=== PATIENT | female | born 1955 | race Caucasian/White ===

== ENCOUNTER → 2016-11-14 | Outpatient (CLI) | payer BC, OTHER ==
--- NOTE | 2016-11-15 18:22 | WOMENS IMAGING REPORT ---
EXAM DESCRIPTION: BILAT SCREENING MAMMO W/CAD COMPLETED DATE/TIME: 11/14/2016 9:36 am REASON FOR STUDY: BILAT SCREENING MAMMO (Z12.31) Z12.31 ENCNTR SCREEN MAMMOGRAM FOR MALIGNANT NEOPL ASM OF CURTIS COMPARISON: Multiple since 2008 TECHNIQUE: Standard craniocaudal and mediolateral oblique views of each breast recorded using digita l acquisition. LIMITATIONS: None. FINDINGS: No masses, calcifications or architectural distortion. No areas of suspicion. Read with the assistance of CAD. .[facility] - R2 Cenova Version 1.3 .[facility] - R2 Cenova Version 1.3 .[facility] - R2 Cenova Version 2.4 .[facility] [place] R2 Cenova Version 2.4 .[facility] - R2 Coding Clerks Supervisor Version 9.2 BREAST DENSITY: c. The breasts are heterogeneously dense, which may obscure small masses. BIRAD: 1 NEGATIVE RECOMMENDATION: ROUTINE SCREENING COMMENT: PATIENT NOTIFIED BY LETTER. The [employer] recommends an annual screening mammogram for women aged 40 years or over. Each patient will receive a reminder prior to the anniversary date of her mammogram. The [employer] (ACR) has developed recommendations for screening MRI of the breast s in certain patient populations, to be used in conjunction with mammography. Breast MRI surveillanc e may be appropriate for women with more than 20% lifetime risk of developing breast cancer as deter mined by genetic testing, significant family history of the disease, or history of mantle radiation f or Hodgkins Disease. ACR Practice Guidelines 2008. TECHNICAL DOCUMENTATION: FINDING NUMBER: (1) ASSESSMENT: (1) JOB ID: [id number] [employer]- All Rights Reserved
== END ==
LOC: WI 09:13
PROVIDERS: ATTEND Specialist
DX: Z12.31 Encounter for screening mammogram for malignant neoplasm of breast (principal)
CPT/HCPCS: 77067; G0202

== ENCOUNTER 2016-11-21 08:39 | Emergency (ER) | payer BC, OTHER ==
[2016-11-21] MEDS ORDERED: HYDROCODONE/ACETAMINOPHEN 5-325 MG TABLET PO ONE (09:03)
--- NOTE | 2016-11-21 09:12 | ER Document Report ---
ED General - General Chief Complaint: Knee Injury Stated Complaint: KNEE PAIN Mode of Arrival: Wheelchair Information source: Patient Notes: 61-year-old female presents with complaints of right knee pain after a horse riding injury. Patient notes she landed on the ground told [id number] was unable to and relate since. Patient was able to drive but notes continued pain. Patient took tramadol at home with minimal relief of symptoms TRAVEL OUTSIDE OF THE [place] IN LAST 30 DAYS: No - HPI Onset: Yesterday Onset/Duration: Sudden Quality of pain: Achy Severity: Moderate Pain Level: 2 Associated symptoms: None Exacerbated by: Movement Relieved by: Denies Similar symptoms previously: No Recently seen / treated by doctor: No - Related Data Allergies/Adverse Reactions: pneumococcal vaccine Allergy (Verified 11/21/16 08:46) Past Medical History - Social History Smoking Status: Unknown if Ever Smoked Cigarette use (# per day): No Chew tobacco use (# tins/day): No Smoking Education Provided: No Frequency of alcohol use: Social Drug Abuse: None Family History: Reviewed & Not Pertinent Patient has suicidal ideation: No Patient has homicidal ideation: No - Past Medical History Cardiac Medical History: Denies: Hx Coronary Artery Disease, Hx Heart Attack, Hx Hypertension - pre hypertensive Pulmonary Medical History: Reports: Hx Bronchitis, Hx Pneumonia - as a child 5 yrs old Denies: Hx Asthma, Hx COPD Neurological Medical History: Denies: Hx Cerebrovascular Accident, Hx Seizures Renal/ Medical History: Denies: Hx Peritoneal Dialysis Musculoskeltal Medical History: Denies Hx Arthritis Past Surgical History: Denies: Hx Pacemaker - Immunizations Hx Diphtheria, Pertussis, Tetanus Vaccination: Yes Review of Systems - Review of Systems Notes: REVIEW OF SYSTEMS: CONSTITUTIONAL : Denies fever, chills, or sweats. Denies recent illness. EENT: Denies eye, ear, throat, or mouth pain or symptoms. Denies nasal or sinus congestion or discharge. Denies throat, tongue, or mouth swelling or difficulty swallowing. CARDIOVASCULAR: Denies chest pain. Denies palpitations or racing or irregular heart beat. Denies ankle edema. RESPIRATORY: Denies cough, cold, or chest congestion. Denies shortness of breath, difficulty breathing, or wheezing. GASTROINTESTINAL: Denies abdominal pain or distention. Denies nausea, vomiting , or diarrhea. Denies blood in vomitus, stools, or per rectum. Denies black, tarry stools. Denies constipation. GENITOURINARY: Denies difficulty urinating, painful urination, burning, frequency, blood in urine, or discharge. FEMALE GENITOURINARY: Denies vaginal bleeding, heavy or abnormal periods, irregular periods. Denies vaginal discharge or odor. MUSCULOSKELETAL: Admits to right knee pain SKIN: Denies rash, lesions or sores. HEMATOLOGIC : Denies easy bruising or bleeding. LYMPHATIC: Denies swollen, enlarged glands. NEUROLOGICAL: Denies confusion or altered mental status. Denies passing out or loss of consciousness. Denies dizziness or lightheadedness. Denies headache. Denies weakness or paralysis or loss of use of either side. Denies problems with gait or speech. Denies sensory loss, numbness, or tingling. Denies seizures. PSYCHIATRIC: Denies anxiety or stress. Denies depression, suicidal ideation, or homicidal ideation. ALL OTHER SYSTEMS REVIEWED AND NEGATIVE. Dictation was performed using [employer] voice recognition software PHYSICAL EXAMINATION: GENERAL: Well-appearing, well-nourished and in no acute distress. HEAD: Atraumatic, normocephalic. EYES: Pupils equal round and reactive to light, extraocular movements intact, conjunctiva are normal. ENT: Nares patent, oropharynx clear without exudates. Moist mucous membranes. NECK: Normal range of motion, supple without lymphadenopathy LUNGS: Breath sounds clear to auscultation bilaterally and equal. No wheezes rales or rhonchi. HEART: Regular rate and rhythm without murmurs ABDOMEN: Soft, nontender, nondistended abdomen. No guarding, no rebound. No masses appreciated. Female : deferred Musculoskeletal: Limited range of motion with small effusion noted of the right knee NEUROLOGICAL: Cranial nerves grossly intact. Normal speech, normal gait. Normal sensory, motor exams PSYCH: Normal mood, normal affect. SKIN: Warm, Dry, normal turgor, no rashes or lesions noted. Physical Exam - Vital signs Vitals: Temp Pulse Resp BP Pulse Ox 98.0 F 71 18 144/48 H 99 11/21/16 08:44 11/21/16 08:44 11/21/16 08:44 11/21/16 08:44 11/21/16 08:44 Course - Re-evaluation Re-evalutation: 11/21/16 09:11 X-ray pending, patient will be given pain control 11/21/16 09:58 Dr nick paged , message left 11/21/16 10:32 11/21/16 10:35 Dr. Nick will evaluate the patient, arminda pain has improved 11/21/16 10:35 11/21/16 10:58 Dr. Nick requests immobilizer , follow up in office tomorrow After performing a Medical Screening Examination, I estimate there is LOW risk for INTRACRANIAL HEMORRHAGE, UNSTABLE SPINE FRACTURE, CENTRAL CORD SYNDROME, CAUDA EQUINA, THORACIC AORTIC DISSECTION, PNEUMOTHORAX, PERFORATED BOWEL, RUPTURED ABDOMINAL AORTIC ANEURYSM, ACUTE TENDON RUPTURE, COMPARTMENT SYNDROME, or OPEN FRACTURE, thus I consider the discharge disposition reasonable. Also, there is no evidence or peritonitis, sepsis, or toxicity. The patient and I have discussed the diagnosis and risks, and we agree with discharging home to follow-up with their primary doctor with the understanding that symptoms and presentations can change. We also discussed returning to the Emergency Department immediately if new or worsening symptoms occur. We have discussed the symptoms which are most concerning (e.g., bloody stool, fever, changing or worsening pain, vomiting) that necessitate immediate return. - Vital Signs Vital signs: Temp Pulse Resp BP Pulse Ox 98.0 F 71 18 144/48 H 99 11/21/16 08:44 11/21/16 08:44 11/21/16 08:44 11/21/16 08:44 11/21/16 08:44 - Diagnostic Test Radiology reviewed: Image reviewed, Reports reviewed Procedures - Immobilization Right Knee Time completed: 11:01 Pre-Proc Neuro Vasc Exam: Normal Immobilizer type: Knee immobilizer Performed by: PCT Post-Proc Neuro Vasc Exam: Normal Alignment checked and good: Yes Discharge - Discharge Clinical Impression: Closed fracture of right tibial plateau Qualifiers: Encounter type: initial encounter Qualified Code(s): S82.141A - Displaced bicondylar fracture of right tibia, initial encounter for closed fracture Knee injury Qualifiers: Encounter type: initial encounter Laterality: right Qualified Code(s): S89.91XA - Unspecified injury of right lower leg, initial encounter Condition: Stable Disposition: HOME, SELF-CARE Instructions: Knee Immobilizing Splint ([facility]) Prescriptions: Oxycodone HCl/Acetaminophen [Percocet 5-325 mg Tablet] 1 - 2 tab PO Q4H PRN #25 tablet PRN Reason: Referrals: WALT SANTIAGO [Primary Care Provider] - Follow up as needed SINDY NICK MD [ACTIVE STAFF] - Follow up tomorrow
[2016-11-21] MEDS ORDERED: OXYCODONE-ACETAMINOPHEN 5-325 MG TABLET PO ONE (10:00)
--- NOTE | 2016-11-21 10:57 | PDOC CONSULTATION ---
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 She appreciated. There was an extreme injury and felt that she probably had an underlying ligamentous injury. She presented to the emergency room where radiographs demonstrated a right tibial plateau fracture. Orthopedics was consult at for fracture management. Past Medical History Cardiac Medical History: Denies: Coronary Artery Disease, Myocardial Infarction, Hypertension - pre hypertensive Pulmonary Medical History: Reports: Bronchitis, Pneumonia - as a child 5 yrs old Denies: Asthma, Chronic Obstructive Pulmonary Disease (COPD) Neurological Medical History: Denies: Seizures Musculoskeltal Medical History: Denies: Arthritis Hematology: Denies: Anemia Past Surgical History Past Surgical History: Reports: Orthopedic Surgery - Left patellar realignment 18 years ago Denies: Pacemaker Social History Information Source: Patient Occupation: Retired pediatric nurse Lives with: Family Smoking Status: Unknown if Ever Smoked Frequency of Alcohol Use: Rare Hx Recreational Drug Use: No Hx Prescription Drug Abuse: No Family History Family History: Reviewed & Not Pertinent Parental Family History Reviewed: No Children Family History Reviewed: No Sibling(s) Family History Reviewed.: No Medication/Allergy Home Medications: Calcium Carb/Vit D3/Minerals [Calcium 600 + D Tablet] 1 each PO DAILY 08/29/11 Estrogens,Conjugated [Premarin 0.625 Mg Tablet] 0.625 mg PO DAILY 08/29/11 Fenofibrate [Fenoglide] 120 mg PO DAILY 08/29/11 Fish Oil 2 cap PO DAILY 08/29/11 Hydrocodone Bit/Acetaminophen [Vicodin 5-500 mg Tablet] 1 - 2 tab PO ASDIR PRN 08/29/11 Ibuprofen [Motrin 800 Mg Tablet] 800 mg PO DAILY 08/29/11 Ibuprofen [Motrin 800 Mg Tablet] 800 mg PO PRN 08/29/11 Multivitamin [Vitamin A Day] 1 each PO DAILY 08/29/11 Simvastatin [Zocor 10 Mg Tablet] 10 mg PO QHS 08/29/11 Allergies/Adverse Reactions: pneumococcal vaccine Allergy (Verified 11/21/16 08:46) Review of Systems All systems: as per [facility] Physical Exam Vital Signs: Temp Pulse Resp BP Pulse Ox 36.7 C 71 18 144/48 H 99 11/21/16 08:44 11/21/16 08:44 11/21/16 08:44 11/21/16 08:44 11/21/16 08:44 Intake & Output 11/20/16 11/21/16 11/22/16 06:59 06:59 06:59 Weight 84.3 kg General appearance: PRESENT: mild distress Head exam: PRESENT: normocephalic Eye exam: PRESENT: EOMI Respiratory exam: PRESENT: unlabored Cardiovascular exam: PRESENT: RRR Pulses: PRESENT: +1 pedal pulses bilateral Vascular exam: PRESENT: normal capillary refill GI/Abdominal exam: PRESENT: soft Rectal exam: PRESENT: deferred Extremities exam: PRESENT: joint swelling, tenderness - Right lower extremity is propped on a pillow. There is no skin abnormalities. There is generalized swelling with an effusion. Tenderness is global. Stability is not tested. Distal neurovascular examination is intact. Neurological exam: PRESENT: alert, altered, awake, oriented to person, oriented to place, oriented to time, oriented to situation Psychiatric exam: PRESENT: anxious Skin exam: PRESENT: warm Results Impressions: Knee X-Ray 11/21/16 09:03 IMPRESSION: Comminuted fracture tibial plateau. Status: Imported from PACS Assessment & Plan - Diagnosis (1) Closed fracture of right tibial plateau Qualifiers: Encounter type: initial encounter Qualified Code(s): S82.141A - Displaced bicondylar fracture of right tibia, initial encounter for closed fracture Is this a current diagnosis for this admission?: YesPlan: Patient was placed into a compressive wrap and a knee immobilizer for today. She'll maintain a touchdown weightbearing restriction on crutches. I'll see her in the office tomorrow morning intent. We'll plan to proceed with an open reduction internal fixation on Monday. This a be done under choice anesthesia on an outpatient basis. - Time Time Spent: 50 to 70 Minutes
[2016-11-21 11:50] VITALS: BP 129/63
== END 2016-11-21 11:50 | disposition home or self-care (01) ==
LOC: ER 08:39
DX: S82.141A Displaced bicondylar fracture of right tibia, initial encounter for closed fracture (principal); V80.010A Animal-rider injured by fall from or being thrown from horse in noncollision accident, initial encounter; Y93.89 Activity, other specified; Y92.009 Unspecified place in unspecified non-institutional (private) residence as the place of occurrence of the external cause; Z88.7 Allergy status to serum and vaccine; M25.561 Pain in right knee
CPT/HCPCS: 99284; 73564; L1830

== ENCOUNTER 2016-11-23 09:30 | Inpatient (IN) | payer BC, OTHER ==
[~2016-11-23 09:30] MED LIST: CEFAZOLIN 2 GM/D5W RTU 2 GM/50 ML RTUPB IV PRN
[2016-11-23 10:17] LABS: APPEARANCE,URINE SLIGHTLY-CLOUDY; BILIRUBIN,URINE NEGATIVE (NEGATIVE); GLUCOSE, URINE NEGATIVE (NEGATIVE); KETONES,URINE NEGATIVE (NEGATIVE); LEUKOCYTE ESTERASE,URINE NEGATIVE (NEGATIVE); NITRITE,URINE NEGATIVE (NEGATIVE); PROTEIN,URINE NEGATIVE (NEGATIVE); URINE SPECIFIC GRAVITY 1.016; UROBILINOGEN,URINE NEGATIVE mg/dL (<2.0)
[2016-11-23] MEDS ORDERED: FAMOTIDINE INJ/PF 20 MG/2 ML SDV IV ONE (10:20)
[2016-11-23 10:26] LABS: ABSOLUTE BASOPHILS # (AUTO) 0.1 10^3/uL (0.0-0.2); ABSOLUTE EOSINOPHILS # (AUTO) 0.2 10^3/uL (0.0-0.6); ABSOLUTE LYMPHOCYTES (AUTO) 1.6 10^3/uL (0.5-4.7); ABSOLUTE MONOCYTES (AUTO) 0.6 10^3/uL (0.1-1.4); ABSOLUTE NEUT (AUTO) 5.8 10^3/uL (1.7-8.2); BASOPHILS % (AUTO) 0.7 % (0-2); HEMATOCRIT 37.8 % (36.0-47.0); HGB HCT DIFFERENCE -1.8; LYMPHOCYTES % (AUTO) 19.6 % (13-45); MEAN CORPUSCULAR HEMOGLOBIN 28.7 pg (27.0-33.4); MEAN CORPUSCULAR HGB CONC 31.7 g/dL (32.0-36.0); MEAN CORPUSCULAR VOLUME 91 fl (80-97); MONOCYTES % (AUTO) 7.3 % (3-13); RED BLOOD COUNT 4.17 10^6/uL (3.72-5.28); RED CELL DISTRIBUTION WIDTH 14.9 % (11.5-14.0); SEGMENTED NEUTROPHILS % (AUTO) 69.4 % (42-78); WHITE BLOOD COUNT 8.3 10^3/uL (4.0-10.5)
[2016-11-23] MEDS ORDERED: MIDAZOLAM 2 MG/2 ML INJ ONE (10:31)
[2016-11-23] MEDS ORDERED: FENTANYL CITRATE INJ/PF 100 MCG/2 ML AMPUL ONE (10:31)
[2016-11-23] MEDS ORDERED: ACETAMINOPHEN 100 ML IV ONE (10:32)
[2016-11-23] MEDS ORDERED: PROPOFOL INJ 200 MG/20 ML VIAL IV ONE (10:32)
[2016-11-23] MEDS ORDERED: MORPHINE SULFATE 10 MG/ML INJ ONE (10:32)
[2016-11-23] MEDS ORDERED: FENTANYL CITRATE INJ/PF 250 MCG/5 ML AMPULE ONE (10:35)
[2016-11-23 10:37] LABS: ANION GAP 11 (5-19); BLOOD UREA NITROGEN 19 mg/dL (7-20); CALCIUM 9.4 mg/dL (8.4-10.2); CARBON DIOXIDE 25 mmol/L (22-30); CHLORIDE 107 mmol/L (98-107); CREATININE RESULT 0.65 mg/dL (0.52-1.25); GLUCOSE 99 mg/dL (75-110); POTASSIUM 4.3 mmol/L (3.6-5.0)
[2016-11-23] MEDS ORDERED: RINGERS SOLUTION,LACTATED 1,000 ML IV ONE (10:45)
--- NOTE | 2016-11-23 11:54 | Operative Report ---
Operative Report DATE OF SURGERY: 11/23/16 PREOPERATIVE DIAGNOSIS: Right bicondylar tibial plateau fracture OPERATION: Open reduction internal fixation right tibial plateau fracture SURGEON: SINDY NICK ANESTHESIA: Spinal ESTIMATED BLOOD LOSS: 50 PROCEDURE: With the patient supine operative table the right lower extremity is prepped and draped in a sterile fashion. Limb was elevated for exsanguination tourniquet inflated to 350 torr. A hockey-type incision is made over the proximal lateral tibia and sharp dissection is carried incision to the underlying fascia. The underlying fascia was elevated off the underlying tibia. The fractures identified. A pelvic reduction forceps was placed across the proximal tibia from lateral to medial and used to effect an anatomic reduction. Subsequently a short [place] titanium proximal lateral tibial plate is applied to lateral surface of the tibia and since secured with 4 screws proximally and 3 screws distally. The fracture reduction and hardware placement are assessed using fluoroscopy in 2 planes and judged to be adequate. At this point the tourniquet was deflated. Hemostasis obtained with electrocautery. The wound is irrigated. His closures interrupted Vicryl followed by janice. A sterile compressive dressing and a knee immobilizer applied and the patient's returned to PACU in satisfactory condition.
[2016-11-23] MEDS ORDERED: ONDANSETRON 4 MG TAB.RAPDIS PO PRN (12:45)
[2016-11-23] MEDS ORDERED: OXYCODONE HCL IR 5 MG TABLET PO PRN (12:45)
[2016-11-23] MEDS ORDERED: PHENYLEPHRINE HCL INJ/PF 10 MG/1 ML SDV ONE (14:27)
[2016-11-23 15:41] VITALS: BP 142/79
--- NOTE | 2016-11-23 18:37 | EKG REPORT ---
SEVERITY:- ABNORMAL ECG - SINUS RHYTHM LEFT VENTRICULAR HYPERTROPHY : Confirmed by: Cy Morales MD 23-Nov-2016 18:37:02
== END 2016-11-23 15:35 | disposition home or self-care (01) | DRG 494 ==
LOC: INOR 09:30 → EDSTATUS 11:45
PROVIDERS: ADMIT Orthopaedic Surgery; ATTEND Orthopaedic Surgery
PROC: 0QSG04Z Reposition Right Tibia with Internal Fixation Device, Open Approach (ICD-10-PCS; principal; 2016-11-23 11:45)
DX: S82.141D Displaced bicondylar fracture of right tibia, subsequent encounter for closed fracture with routine healing (principal); E78.5 Hyperlipidemia, unspecified; I10 Essential (primary) hypertension; K21.9 Gastro-esophageal reflux disease without esophagitis; V80.010D Animal-rider injured by fall from or being thrown from horse in noncollision accident, subsequent encounter; Z87.891 Personal history of nicotine dependence
CPT/HCPCS: 01392; 36415; 71010; 80048; 81001; 85025; 93005; 93010; C1713; J0131; J0690; J2250; J2270; J2370; J2704; J3010; S0028